=== PATIENT | male | born 1995 | race Hispanic/Latino ===

== ENCOUNTER 2017-09-08 11:12 | Emergency (ER) | payer OTHER ==
[~2017-09-08] VITALS: Ht 177.8 cm; Wt 95.3 kg
[2017-09-08 11:21] VITALS: BP 141/84
--- NOTE | 2017-09-08 11:21 | NUR ---
ORDERED CBC COMP
[2017-09-08 11:42] LABS: APPEARANCE,URINE CLEAR (CLEAR); BILIRUBIN,URINE NEGATIVE (NEGATIVE); UA COLOR YELLOW (YELLOW); UROBILINOGEN,URINE NORMAL (NEGATIVE)
[2017-09-08 11:51] LABS: BASOPHIL # 0.1 10^3/uL (0.0-0.1); EOSINOPHIL # 0.1 10^3/uL (0.0-0.2); EOSINOPHIL % 1.3 % (0.0-5.0); HEMOGLOBIN 14.2 g/dL (13.9-16.3); LYMPHOCYTES # 1.4 10^3/uL (1.0-4.8); LYMPHOCYTES % 16.6 % (24.0-44.0); MEAN CELL HGB 28.6 pg (26-34); MEAN CELL HGB CONCENTRATION 33.9 g/dL (33-37); MEAN CORP VOLUME 84.5 fL (78-100); MONOCYTES # 0.4 10^3/uL (0.3-0.8); MONOCYTES % 5.1 % (5.0-12.0); NEUTROPHIL # 6.5 10^3/uL (1.8-7.7); NEUTROPHILS % 74.9 % (41.0-85.0); RED CELL DISTRIBUTION WIDTH 14.2 % (11.5-14.5); WHITE BLOOD CELL 8.7 10^3/uL (4.5-11.0)
[2017-09-08] MEDS ORDERED: NS IV SCH (12:00)
[2017-09-08] MEDS ORDERED: INFUVITE ADULT IV SCH (12:00)
[2017-09-08] MEDS ORDERED: THIAMINE HCL IV SCH (12:00)
[2017-09-08] MEDS ORDERED: FOLIC ACID IV SCH (12:00)
[2017-09-08 12:08] LABS: ALANINE AMINOTRANSFERASE(ML) 62 U/L (12-78); ALKALINE PHOSPHATASE 98 U/L (50-136); ASPARTATE AMINO TRANSFERASE 34 U/L (0-35); CALCIUM 8.2 mg/dL (8.4-10.5); CARBON DIOXIDE 26.4 mmol/L (20.0-32); GLUCOSE 121 mg/dL (70-110)
[2017-09-08 12:11] LABS: ACETAMINOPHEN 0 ug/mL (10-30)
[2017-09-08] MEDS ORDERED: ZOFRAN ODT ONE (12:26)
--- NOTE | 2017-09-08 12:27 | ER.PDOC ---
General Chief Complaint: Alcohol/Substance Abuse Stated Complaint: GENERAL Time seen by MD: 11:24 Source: patient Exam Limitations: intoxication History of Present Illness Initial Comments Patient brought via EMS due to passing out. He cut himself with small scratch left arm. He admits to drinking heavily this morning. Timing/Duration: 1-3 hours Character of AMS: confused Past Medical History Medical History: no pertinent history Surgical History: no surgical history Social History Alcohol Use: heavy Review of Systems All Other Systems: Reviewed and Negative Physical Exam General Appearance: other (intoxicated) HEENT: no apparent trauma, EOM's intact, no nystagmus, PERRL, ENT inspection nml, pharynx nml, airway intact, oral exam nml Neuro/Psych: oriented x3, nml speech/cognition, nml mood/affect Cranial Nerves: nml as tested Cerebellar: nml as tested Peripheral Exam: motor nml, sensation nml, reflexes nml Neck: supple, non-tender, no carotid bruit Respiratory: no resp distress, breath sounds nml CVS: reg rate & rhythm, heart sounds nml Abdomen: non-tender, no organomegaly, no distention Skin: color nml, no rash, warm/dry Extremities: non-tender, nml ROM, no pedal edema Results/Orders Results/Orders Laboratory Tests Test 09/08/17 11:32 09/08/17 11:43 Urine Collection Type VOID Urine Color YELLOW (YELLOW) Urine Appearance CLEAR (CLEAR) Urine Bilirubin NEGATIVE MG/DL (NEGATIVE) Urine Ketones NEGATIVE (NEGATIVE) Urine Specific [place] 1.010 (1.005-1.035) Urine pH 6.5 (5.0-6.0) Urine Protein NEGATIVE (NEGATIVE) Urine Urobilinogen NORMAL (NEGATIVE) Urine Nitrate NEGATIVE (NEGATAIVE) Urine Leukocyte Esterase NEGATIVE (NEGATIVE) Urine Blood NEGATIVE (NEGATIVE) Urine Glucose NORMAL (NEGATIVE) Urine Opiates (GC/MS) NEGATIVE Urine Amphetamine Qualitative NEGATIVE Urine Barbiturates, Qualitative NEGATIVE Ur Tricyclic Antidepressants Screen NEGATIVE Urine Phencyclidine (PCP) (TLC) NEGATIVE Urine Benzodiazepines, Qualitative NEGATIVE Ur Tetrahydrocannabinol (THC) Scrn NEGATIVE White Blood Count 8.7 10^3/uL (4.5-11.0) Red Blood Count 4.96 10^6/uL (4.50-5.90) Hemoglobin 14.2 g/dL (13.9-16.3) Hematocrit 41.9 % (37.0-53.0) Mean Corpuscular Volume 84.5 fL (78-100) Mean Corpuscular Hemoglobin 28.6 pg (26-34) Mean Corpuscular Hemoglobin Concent 33.9 g/dL (33-37) Red Cell Distribution Width 14.2 % (11.5-14.5) Platelet Count 153 10^3/uL (150-400) Mean Platelet Volume 9.0 fL (7.8-11.0) Neutrophils (%) (Auto) 74.9 % (41.0-85.0) Lymphocytes (%) (Auto) 16.6 % (24.0-44.0) Monocytes (%) (Auto) 5.1 % (5.0-12.0) Neutrophils # (Auto) 6.5 10^3/uL (1.8-7.7) Lymphocytes # (Auto) 1.4 10^3/uL (1.0-4.8) Monocytes # (Auto) 0.4 10^3/uL (0.3-0.8) Absolute Immature Granulocyte (auto 0.10 10^3 u/L (0-2) Eosinophils % 1.3 % (0.0-5.0) Basophils % 1.0 % (0.0-0.2) Basophils # 0.1 10^3/uL (0.0-0.1) Eosinophil Count 0.1 10^3/uL (0.0-0.2) Sodium Level 141 mmol/L (132-145) Potassium Level 3.8 mmol/L (3.6-5.2) Chloride Level 105.0 mmol/L (96-109) Carbon Dioxide Level 26.4 mmol/L (20.0-32) Anion Gap 13.4 Blood Urea Nitrogen 8 mg/dL (7-18) Creatinine 1.06 mg/dL (0.59-1.40) Estimated GFR () 106.7 (>/=60) BUN/Creatinine Ratio 7.0 Glucose Level 121 mg/dL (70-110) Calcium Level 8.2 mg/dL (8.4-10.5) Total Bilirubin 0.5 mg/dL (0.2-1.0) Aspartate Amino Transf (AST/SGOT) 34 U/L (0-35) Alanine Aminotransferase (ALT/SGPT) 62 U/L (12-78) Alkaline Phosphatase 98 U/L (50-136) Total Protein 8.1 g/dL (6.4-8.2) Albumin 4.3 g/dL (3.4-5.0) Globulin 3.8 Salicylates Level < 2.8 mg/dL (2.8-20.0) Acetaminophen Level 0 ug/mL (10-30) Serum Alcohol 129 mg/dL (3-50) Percent Immature Gran (Cell Imm) 1.10 % (0.00-0.50) Administered Medications Medications (Trade) Dose Ordered Sig/Tomas Route PRN Reason Start Time Stop Time Status Last Admin Dose Admin Thiamine HCl 100 mg/Multivit Infusn,Adult 4,Vit K 10 ml/ Folic Acid 1 mg/ Sodium Chloride 1,011.2 ml @ 100 mls/ hr [id number] IV 09/08/17 12:00 10/08/17 11:59 09/08/17 12:08 Progress Progress Patient feeling better. Departure Time of Disposition: 12:57 Disposition: 01 HOME, SELF-CARE Impression: Primary Impression: Alcohol abuse Condition: Stable Patient Instructions: Alcohol Problems Referrals: PCP,UNKNOWN (PCP) PRIMARY CARE PROVIDER Additional Instructions: avoid alcohol. Drink plenty of fluids. Follow up with PCP in 1-2 days. Duration or Time Spent with Pa: 40 GENE MARTINEZ DO Sep 08, 2017 12:27
--- NOTE | 2017-09-08 12:30 | PCM.EKG ---
[facility] Test Date: 2017-09-08 Test Time: 11:48:09 Pat Name: ALECIA ZEE Department: Patient ID: [id number] Room: Gender: M Facility Examiner: RT : 1995 Requested By: GENE MARTINEZ Order Number: [id number] Reading MD: Celio DOMINGUEZ Measurements Intervals [place] Rate: 86 P: 58 FL: 176 QRS: 91 QRSD: 92 T: 16 QT: 360 QTc: 430 Interpretive Statements Normal sinus rhythm Nonspecific T wave abnormality Abnormal ECG No previous ECG available for comparison Electronically Signed On 09-13-2017 20:57:23 [employer] by Celio DOMINGUEZ Please click the below link to view image of tracing.
[2017-09-08] MEDS ORDERED: TRIPLE ANTIBIOTIC OINTMENT TP ONE (12:37)
[2017-09-08 14:45] VITALS: BP 118/59
[2017-09-08 14:51] VITALS: BP 118/59
== END 2017-09-08 14:45 | disposition home or self-care (01) ==
LOC: ER 11:12
DX: F10.10 Alcohol abuse, uncomplicated (principal); R41.0 Disorientation, unspecified
CPT/HCPCS: 36415; 80053; 80307; 81002; 85025; 93005; 96365; 99285; G0481; G0482; G0483; J7030; Q0162; J3411